=== PATIENT | female | born 1940 | race Caucasian/White ===

== ENCOUNTER 2018-04-20 18:00 | Emergency (ER) | payer MEDICARE, OTHER ==
[2018-04-20 18:14] VITALS: BP 159/84
--- NOTE | 2018-04-20 18:48 | ED Physician Documentation ---
History of Present Illness - Stated complaint Stated Complaint: R ARM LAC - Chief complaint Chief Complaint: Ext Problem - History obtained from History obtained from: Patient - Additonal information Additional information: 77-year-old female presents the emergency department with right forearm skin tear which occurred just prior to arrival. The patient fell injuring her right forearm. The patient denies injury to her head, neck, torso. Symptoms are described as mild. The patient reports being up-to-date on her tetanus. No other associated symptoms. Review of Systems Constitutional: denies: Fever Ears: denies: Ear pain Respiratory: denies: Cough Skin: reports: Laceration (s) Musculoskeletal: denies: Neck pain Neurologic: denies: Generalized weakness PD PAST MEDICAL HISTORY - Past Medical History Past Medical History: No - Past Surgical History Past Surgical History: Yes - Present Medications Home Medications: Ambulatory Orders Medication Instructions Recorded Confirmed Abx 04/20/18 Aspirin 325 mg PO 04/20/18 Cholecalciferol [Vitamin D3] unit 04/20/18 Estradiol [Estrace] mg PO DAILY 04/20/18 Rosuvastatin Calcium [Crestor] mg PO 04/20/18 - Allergies Allergies/Adverse Reactions: Allergies Allergy/AdvReac Type Severity Reaction Status Date / Time bee venom protein (honey bee) Allergy Anaphylaxis Verified 04/20/18 18:05 - Social History Does the pt smoke?: No Smoking Status: Never smoker Does the pt drink ETOH?: No Does the pt have substance abuse?: No - Immunizations Immunizations are current?: Yes Immunizations: TDAP current <10years PD ED PE NORMAL - General General: Alert and oriented X 3, No acute distress - HEENT HEENT: Atraumatic, PERRL, EOMI - Derm Derm: Normal color, Other (There is a small irregular skin tear on the right forearm. No deep component, no active bleeding or signs of foreign body) - Extremities Extremities: No deformity - Neuro Neuro: Alert and oriented X 3, Normal speech - Psych Psych: Normal mood Results - Vitals Vitals: Vital Signs - 24 hr 04/20/18 18:02 Temperature 36.2 C L Heart Rate 100 Respiratory 16 Rate Blood Pressure 159/84 H O2 Saturation 98 Oxygen O2 Source Room air Procedures - Laceration (location) Upper extremity right Wound type: Curved Neurovascular status: Sensory intact, Motor intact, Vascular intact Wound Preparation: Irrigated copiously NS Skin layer closure: Steri strips, Interrupted Other: Patient tolerated well Complexity: Simple PD MEDICAL DECISION MAKING - ED course ED course: The wound was closed using Steri-Strips. I discussed warning signs for infection and recommended returning to the emergency department immediately for worsening or concerns. - Sepsis Event Vital Signs: Vital Signs - 24 hr 04/20/18 18:02 Temperature 36.2 C L Heart Rate 100 Respiratory 16 Rate Blood Pressure 159/84 H O2 Saturation 98 Oxygen O2 Source Room air Departure - Departure Disposition: 01 Home, Self Care Clinical Impression: Skin tear Condition: Good Instructions: ED Avulsion Dermal Comments: Please follow-up with your primary care physician in 1 week. Please return to the emergency department for worsening symptoms or concerns
== END 2018-04-20 18:48 | disposition home or self-care (01) ==
LOC: ED 18:00
DX: S41.111A Laceration without foreign body of right upper arm, initial encounter (principal); W19.XXXA Unspecified fall, initial encounter; W26.9XXA Contact with unspecified sharp object(s), initial encounter; Z79.82 Long term (current) use of aspirin
CPT/HCPCS: 99282